=== PATIENT | female | born 1990 ===

== ENCOUNTER 2017-03-13 21:13 | Inpatient (IN) | payer OTHER ==
[~2017-03-13] VITALS: Ht 160 cm; Wt 65.0 kg
[~2017-03-13 21:13] MED LIST: CEPH500 PO; CIPR250 PO; CIPR500; CIPR500 PO; DIPH12.5EL PO; DOCU100 PO; HYDACE5 PO; HYDHCL25 PO; HYDR1TAB94 PO; IBUP600 PO; IBUP800 PO; KETO10 PO; NAPR500ERA PO; NAPROXEN SODIU PO; NITR100CA PO; Norco 5-325 Ta1 EACH PO; OMEP20ER PO; ONDA4ODT MM; OXYACE5T PO; OXYB5 PO; PHENA100 PO; PHENA200 PO; PRED20 PO; PROM25 PO; Percocet 5-3251 EACH PO; Prednisone20 MG PO; Pyridium200 MG PO; RXHYDACE PO; RXONDA4ODT MM; RXOXYACE PO; SULTRIDS PO; TAMS.4ER PO; TRAM50 PO; Zofran Odt4 MG SL; Zofran4 MG PO; Zofran8 MG PO; [UNRECOGNIZED DRUG - OTHER]
[2017-03-14 01:03] LABS: BASOPHILS ABSOLUTE AUTO 0.04 K/mm3 (0.00-0.23); BASOPHILS PERCENT AUTO 1 % (0-2); EOSINOPHILS ABSOLUTE AUTO 0.03 K/mm3 (0.00-0.68); EOSINOPHILS PERCENT AUTO 0 % (0-6); Hematocrit 36.8 % (33.0-51.0); Hemoglobin 12.8 g/dL (11.5-16.0); IMMATURE GRAN ABSOLUTE AUTO 0.03 K/mm3 (0.00-0.10); IMMATURE GRAN PERCENT AUTO 0 % (0-1); LYMPHOCYTES ABSOLUTE AUTO 1.73 K/mm3 (0.84-5.20); LYMPHOCYTES PERCENT AUTO 21 % (21-46); MONOCYTES ABSOLUTE AUTO 0.59 K/mm3 (0.16-1.47); MONOCYTES PERCENT AUTO 7 % (4-13); Mean Corpuscular HGB 33.2 pg (26.0-34.0); Mean Corpuscular HGB Conc 34.8 g/dL (31.5-36.5); Mean Corpuscular Volume 95 fL (80-100); Mean Platelet Volume 12.7 fL (9.1-12.4); NEUTROPHILS ABSOLUTE AUTO 5.82 K/mm3 (1.96-9.15); NEUTROPHILS PERCENT AUTO 71 % (41-73); Platelet Count 185 K/mm3 (150-400); RDW Coefficient Variation 12.7 % (11.7-14.2); Red Blood Cell Count 3.86 M/mm3 (3.80-5.20); White Blood Cell Count 8.24 K/mm3 (4.00-11.30)
[2017-03-15 06:27] LABS: BASOPHILS ABSOLUTE AUTO 0.04 K/mm3 (0.00-0.23); BASOPHILS PERCENT AUTO 0 % (0-2); EOSINOPHILS ABSOLUTE AUTO 0.05 K/mm3 (0.00-0.68); EOSINOPHILS PERCENT AUTO 0 % (0-6); Hematocrit 37.7 % (33.0-51.0); Hemoglobin 12.4 g/dL (11.5-16.0); IMMATURE GRAN ABSOLUTE AUTO 0.04 K/mm3 (0.00-0.10); IMMATURE GRAN PERCENT AUTO 0 % (0-1); LYMPHOCYTES ABSOLUTE AUTO 3.06 K/mm3 (0.84-5.20); LYMPHOCYTES PERCENT AUTO 27 % (21-46); MONOCYTES ABSOLUTE AUTO 0.74 K/mm3 (0.16-1.47); MONOCYTES PERCENT AUTO 6 % (4-13); Mean Corpuscular HGB 32.5 pg (26.0-34.0); Mean Corpuscular HGB Conc 32.9 g/dL (31.5-36.5); Mean Corpuscular Volume 99 fL (80-100); Mean Platelet Volume 11.9 fL (9.1-12.4); NEUTROPHILS ABSOLUTE AUTO 7.55 K/mm3 (1.96-9.15); NEUTROPHILS PERCENT AUTO 66 % (41-73); Platelet Count 178 K/mm3 (150-400); RDW Coefficient Variation 12.7 % (11.7-14.2); Red Blood Cell Count 3.82 M/mm3 (3.80-5.20); White Blood Cell Count 11.48 K/mm3 (4.00-11.30)
== END 2017-03-15 11:00 | disposition home or self-care (01) | DRG 775 ==
LOC: OBS 21:13 → BC 21:17 → OBS 03-14 00:41 → BC 03-14 00:45
PROVIDERS: Nurse Practitioner Obstetrics & Gynecology
PROC: 10E0XZZ Delivery of Products of Conception, External Approach (ICD-10-PCS; principal; 2017-03-14)
DX: O80 Encounter for full-term uncomplicated delivery (principal); Z37.0 Single live birth; Z3A.40 40 weeks gestation of pregnancy; Z91.011 Allergy to milk products; Z91.013 Allergy to seafood
CPT/HCPCS: 36415; 51702; 59025; 81003; 85025; 99214; J1885; J2210; J2405; J2590; J7120

== ENCOUNTER 2021-03-21 10:13 | Emergency (ER) | payer OTHER ==
[~2021-03-21] VITALS: Ht 162.6 cm; Wt 52.2 kg
[2021-03-21 12:02] LABS: BASOPHILS ABSOLUTE AUTO 0.05 K/mm3 (0.00-0.23); BASOPHILS PERCENT AUTO 0 % (0-2); EOSINOPHILS PERCENT AUTO 0 % (0-6); Hematocrit 46.2 % (33.0-51.0); Hemoglobin 15.9 g/dL (11.5-16.0); IMMATURE GRAN ABSOLUTE AUTO 0.05 K/mm3 (0.00-0.10); IMMATURE GRAN PERCENT AUTO 0 % (0-1); LYMPHOCYTES ABSOLUTE AUTO 0.41 K/mm3 (0.84-5.20); LYMPHOCYTES PERCENT AUTO 3 % (21-46); MONOCYTES ABSOLUTE AUTO 0.54 K/mm3 (0.16-1.47); MONOCYTES PERCENT AUTO 4 % (4-13); Mean Corpuscular HGB 32.6 pg (26.0-34.0); Mean Corpuscular HGB Conc 34.4 g/dL (31.5-36.5); Mean Corpuscular Volume 95 fL (80-100); Mean Platelet Volume 9.7 fL (9.1-12.4); NEUTROPHILS ABSOLUTE AUTO 13.17 K/mm3 (1.96-9.15); NEUTROPHILS PERCENT AUTO 93 % (41-73); Platelet Count 285 K/mm3 (150-400); RDW Coefficient Variation 11.4 % (11.7-14.2); RDW Standard Deviation 39.8 fL (35.1-46.3); Red Blood Cell Count 4.88 M/mm3 (3.80-5.20); White Blood Cell Count 14.22 K/mm3 (4.00-11.30)
[2021-03-21 12:24] LABS: Alanine Aminotransfer (ALT/SGP 27 U/L (12-78); Albumin, Blood 4.7 g/dL (3.4-5.0); Albumin/Globulin Ratio 1.5 (0.8-1.8); Alk Phos 39 U/L (50-136); Anion Gap 6 mmol/L (6-16); Aspartate Aminotrans (AST/SGOT 18 U/L (12-37); Bilirubin, Total 0.7 mg/dL (0.1-1.0); Blood Urea Nitrogen 16 mg/dL (8-24); Bun/Creatinine Ratio 27.1 (12.0-20.0); CO2, Blood 29 mmol/L (21-32); Calcium, Blood 9.2 mg/dL (8.5-10.1); Chloride, Blood 105 mmol/L (98-108); Creatinine, Blood 0.59 mg/dL (0.40-1.00); Globulin, Blood 3.2 g/dL (2.2-4.0); Glomerular Filtration Rate >60 (60-); Glucose, Blood 120 mg/dL (70-99); Sodium, Blood 140 mmol/L (136-145); Total Protein, Blood 7.9 g/dL (6.4-8.2)
[2021-03-21 14:25] LABS: Source, Urine Clean Catch
[2021-03-21 14:29] LABS: Blood, Urine 1+ (Neg); Glucose Qualitative, Urine Neg (Neg); Ketones, Urine 3+ (Neg); Leukocyte Esterase, Urine 1+ (Neg); Nitrite, Urine Neg (Neg); Protein, Urine 2+ (Neg); Specific Gravity, Urine 1.025 (1.003-1.022); Urobilinogen, Urine 1+ (Normal)
[2021-03-21 14:34] LABS: Appearance, Urine Cloudy (Clear); Color, Urine Yellow (P-Yellow)
[2021-03-21 14:36] LABS: Bilirubin, Urine 1+ (Neg)
[2021-03-21 14:37] LABS: Bacteria Many /hpf; Squamous Epithelial Cells Few /hpf (Few)
[2021-03-21 14:38] LABS: Amorphous Heavy (0-Heavy); Mucus Heavy (0-Heavy)
[2021-03-21] MEDS ORDERED: ONDA4ODT MM (15:07)
== END 2021-03-21 15:45 | disposition home or self-care (01) ==
LOC: ER 10:13
PROVIDERS: Physician Assistant
DX: K52.9 Noninfective gastroenteritis and colitis, unspecified (principal); Z91.011 Allergy to milk products; Z91.013 Allergy to seafood
CPT/HCPCS: 36415; 80053; 81001; 81025; 83690; 85025; 87086; 96372; 96374; 99284-25; A9270; J0500; J2405; J7030